=== PATIENT | male | born 1980 | race African-American/Black ===

== ENCOUNTER 2019-09-20 07:02 | Emergency (ER) | payer OTHER ==
--- NOTE | 2019-09-20 07:14 | ED Physician Documentation ---
General Adult - HISTORIAN Historian: patient - HPI Stated Complaint: right eye drainage Chief Complaint: Eye Problems Onset: days ago (2) Timing: still present Severity: moderate Further Comments: yes (He states a few days ago he had some itching in his right eye then has increased in itching and this am there was drainage that was crusting. No affect on vision. No pain no injury) - ROS CONST: no problems EYES/ENT: denies: problems with vision CVS/RESP: denies: cough - PAST HX Past History: hypertension Immunizations: UTD Allergies/Adverse Reactions: Allergies Allergy/AdvReac Type Severity Reaction Status Date / Time No Known Allergies Allergy Verified 09/20/19 07:20 Home Medications: Ambulatory Orders Medication Instructions Recorded Apixaban [Eliquis] 1 tab PO DAILY 09/20/19 Carvedilol [Coreg] 6.25 mg PO HS 09/20/19 - SOCIAL HX Smoking History: non-smoker Alcohol Use: none Drug Use: none - FAMILY HX Family History: No - VITAL SIGNS Vital Signs: Vital Signs Temp Pulse Resp BP Pulse Ox 164/114 11/04/16 17:50 - REVIEWED ASSESSMENTS Nursing Assessment Reviewed: Yes Vitals Reviewed: Yes General Adult Physical Exam - PHYSICAL EXAM GENERAL APPEARANCE: no distress EENT: eye inspection normal, no signs of dehydration, FERNANDA, other (yellow crusting drainage right eye ) RESPIRATORY: no resp distress, chest non-tender, breath sounds normal, rhonchi ABDOMEN: soft, non-tender BACK: normal inspection SKIN: warm/dry EXTREMITIES: non-tender NEURO: oriented X3 Discharge Clincal Impression: Conjunctivitis, right eye Qualifiers: Conjunctivitis type: acute Acute conjunctivitis type: bacterial Qualified Code(s): H10.31 - Unspecified acute conjunctivitis, right eye Referrals: Christo Young MD [Primary Care Provider] - 2 Days Comments: 1. Erythromycin eye drops instill 1 cm in the affected eye 5 times per day x 5 days 2. Wash hands after touching 3. Warm compress for comfort 4. Change out any item used in eye - contact lens etc 5. See PCP in 2- 4days 6. Return to ER for any concerns Condition: Stable Disposition: 01 HOME, SELF-CARE Decision to Admit: NO Date of Decison to Admit: 09/20/19 Decision Time: 07:26
[2019-09-20 07:31] VITALS: BP 182/115
== END 2019-09-20 07:30 | disposition home or self-care (01) ==
LOC: ED 07:02 → EDSTATUS 07:13 → ED 07:30
DX: H10.31 Unspecified acute conjunctivitis, right eye (principal)
CPT/HCPCS: 99281; 99282